=== PATIENT | female | born 1985 | race Two or more races ===

== ENCOUNTER 2019-12-21 13:03 | Emergency (ER) | payer MEDICAID ==
[~2019-12-21] VITALS: Ht 152.4 cm; Wt 77.1 kg
[2019-12-21 13:33] VITALS: BP 103/68
--- NOTE | 2019-12-21 13:33 | NUR ---
ED Nurse Note: Pt walked in to Ed from home c/o right side face pain x1 week. Denies fall/ injury. AAOX4, verbally responsive. No SOB, on room air.
--- NOTE | 2019-12-21 13:49 | Emergency Room Report ---
History of Present Illness General Chief Complaint: Pain Source: Patient Present Illness HPI Patient is 34-year-old female presents for increased right-sided throbbing headache. Denies any fever. Denies any visual changes. Reports that increased rest at work. Denies any neck stiffness or cough. Gradual onset of symptoms. Intermittent headache. Denies prior history of headaches in the past. States that she had not been having any diarrhea or abdominal pain. Denies any problems with urination. Did not take any medications. Denies any weakness or numbness to her extremities. Denies being . Allergies: Coded Allergies: No Known Allergies (Unverified , 12/21/19) COVID-19 Screening Contact w/high risk pt: No Experienced COVID-19 symptoms?: No COVID-19 Testing performed DEMAND GENERATION MANAGER: No Patient History Past Medical History: see triage record Reviewed Nursing Documentation: PMH: Agreed; PSxH: Agreed Nursing Documentation-PM Past Medical History: No Stated History Review of Systems All Other Systems: negative except mentioned in HPI Physical Exam Vital Signs Date Time Temp Pulse Resp B/P (MAP) Pulse Ox O2 Delivery O2 Flow Rate FiO2 12/21/19 13:29 98.6 78 18 103/68 (80) 98 Room Air Sp02 EP Interpretation: reviewed, normal General Appearance: normal inspection, well appearing, no apparent distress, alert, GCS 15 Head: atraumatic ENT: normal ENT inspection, hearing grossly normal, normal voice Neck: normal inspection, full range of motion, supple, no bony tend Respiratory: normal inspection, lungs clear, normal breath sounds, no respiratory distress, no retraction, no wheezing Cardiovascular #1: regular rate, rhythm, no edema Gastrointestinal: normal inspection, normal bowel sounds, non tender, soft, no guarding, no hernia Genitourinary: no CVA tenderness Musculoskeletal: normal inspection, back normal, normal range of motion Neurologic: alert, motor strength/tone normal, 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 Differential diagnoses included but was not limited to skull fracture, subarachnoid hemorrhage, meningitis, aneurysm, mass lesion, intracranial hemorrhage. Because of complexity of patient's case imaging studies were ordered. Patient noted to have a headache which appears to be related to recent increase in stress. She has a nonfocal neurologic exam. CT imaging was ordered due to patient's first-time headache.Patient given ibuprofen with improvement in her headache. CT imaging showed no evidence of acute pathology. Patient does not show any evidence of meningismus and does not appear to have any evidence of focal neuro deficit. Appears to be stable for outpatient management. She is advised to follow-up with her primary care physician for recheck. T Patient is advised to return if any worsening condition or if any changes in status that are concerning. This report is dictated with [employer] unit support representative software which may occasionally lead to discrepancies related to use of this software. Labs Test 12/21/19 13:55 Urine Color Pale yellow Urine Appearance Clear Urine pH 7 (4.5-8.0) Urine Specific [place] 1.005 (1.005-1.035) Urine Protein Negative (NEGATIVE) Urine Glucose (UA) Negative (NEGATIVE) Urine Ketones Negative (NEGATIVE) Urine Blood Negative (NEGATIVE) Urine Nitrite Negative (NEGATIVE) Urine Bilirubin Negative (NEGATIVE) Urine Urobilinogen Normal MG/DL (0.0-1.0) Urine Leukocyte Esterase Negative (NEGATIVE) Urine HCG, Qualitative Negative (NEGATIVE) Last Vital Signs Date Time Temp Pulse Resp B/P (MAP) Pulse Ox O2 Delivery O2 Flow Rate FiO2 12/21/19 13:33 98.6 78 18 103/68 98 Room Air Status: improved Disposition: HOME, SELF-CARE Condition: Stable Scripts Ibuprofen* (MOTRIN*) 600 Mg Tablet 600 MG ORAL Q8H PRN for FOR PAIN, #30 TAB 0 Refills Prov: Baltazar Regan MD 12/21/19 Baltazar Regan MD Dec 21, 2019 13:49
[2019-12-21 14:12] LABS: APPEARANCE,URINE CLEAR; BILIRUBIN, URINE NEGATIVE (NEGATIVE); COLOR,URINE PALE YELLOW; GLUCOSE, URINE (UA) NEGATIVE (NEGATIVE); KETONES,URINE NEGATIVE (NEGATIVE); LEUKOCYTE ESTERASE ,URINE NEGATIVE (NEGATIVE); NITRITE,URINE NEGATIVE (NEGATIVE); PH,URINE 7 (4.5-8.0); PROTEIN,URINE NEGATIVE (NEGATIVE); UROBILINOGEN,URINE NORMAL MG/DL (0.0-1.0)
--- NOTE | 2019-12-21 14:40 | NUR ---
ED Nurse Note: Pt was taken to CT via wc.
--- NOTE | 2019-12-21 14:54 | NUR ---
ED Nurse Note: Pt returned from CT.
--- NOTE | 2019-12-21 15:29 | Diagnostic Imaging Report ---
Indication: Headache Technique: Continuous helical CT scanning of the head was performed without intravenous contrast material. Axial and coronal 5 mm sections were generated. Radiation dose was minimized using automated exposure control Dose: Total Dose Length Product - DLP [address] Dose Index - CTDIvol(s) 53.4 mGy. Comparison: None FINDINGS: There is no acute intracranial hemorrhage, mass effect or cortical edema. The ventricles, cisterns and sulci are normal for age. Visualized mastoid air cells and paranasal sinuses are unremarkable. No focal lesions of the bony calvarium or soft tissues of the scalp are seen. IMPRESSION: No evidence of acute intracranial hemorrhage, mass effect or cortical edema. MRI may be obtained for more sensitive evaluation as clinically indicated. The CT scanner at [facility] is accredited by the [employer] and the scans are performed using protocols designed to limit radiation exposure to as low as reasonably achievable to attain images of sufficient resolution adequate for diagnostic evaluation.
[2019-12-21] MEDS ORDERED: IBUPROFEN600 M1 ORAL (15:33)
[2019-12-21 15:35] VITALS: BP 110/67
--- NOTE | 2019-12-21 15:35 | NUR ---
ED Nurse Note: Pt cleared by ERMD for discharge. DC instructions/prescription was given and explained to pt and verbalized understanding of teachings. All medical deviecs such as ID band removed. Pt is AAO x4, ambulatory and left with all personal belongings.
== END 2019-12-21 15:35 | disposition home or self-care (01) ==
LOC: EMR 14:16
DX: R51.9 Headache, unspecified (principal)
CPT/HCPCS: 70450; 81003; 81025; Z7502; 99284